=== PATIENT | female | born 1990 | race African-American/Black ===

== ENCOUNTER 2021-09-05 02:31 | Emergency (ER) | payer SELFPAY ==
[~2021-09-05] VITALS: Ht 172.7 cm; Wt 91.0 kg
[2021-09-05 02:41] VITALS: BP 137/53
[2021-09-05] MEDS ORDERED: FLOV44 INH (05:36)
[2021-09-05] MEDS ORDERED: AZIT250T MT (05:36)
== END 2021-09-05 05:55 | disposition home or self-care (01) ==
LOC: ER 02:31
DX: J40 Bronchitis, not specified as acute or chronic (principal)
CPT/HCPCS: 99283